=== PATIENT | female | born 1940 | race Caucasian/White ===

== ENCOUNTER 2016-07-09 09:23 | Outpatient (CLI) | payer MEDICARE, OTHER | END 2016-07-09 09:24 | disposition home or self-care (01) | DX: I51.7 Cardiomegaly (principal) ==

== ENCOUNTER 2016-08-09 10:36 | Outpatient (CLI) | payer MEDICARE, OTHER | END 2016-08-09 23:59 | DX: I42.2 Other hypertrophic cardiomyopathy (principal) ==

== ENCOUNTER 2017-01-23 16:14 | Emergency (ER) | payer MEDICARE, OTHER ==
[2017-01-23] MEDS ORDERED: HEPARIN 5,000 UNIT/ML VIAL IVP ONE (16:37)
[2017-01-23] MEDS ORDERED: METOPROLOL 5 MG/5 ML VIAL IVP STA (16:37)
[2017-01-23] MEDS ORDERED: HEPARIN 25,000 UNITS/500 ML 500 ML IV STA (16:37)
--- NOTE | 2017-01-23 16:40 | ED Physician Documentation ---
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 Review of Systems Constitutional: denies: Fever, Chills, Sweats Cardiac: reports: Chest pain / pressure Respiratory: denies: Dyspnea GI: denies: Abdominal Pain, Nausea, Vomiting Musculoskeletal: denies: Extremity pain, Extremity swelling Endocrine: denies: Easy bruising / bleeding Immunocompromised: denies: Immunocompromised PD PAST MEDICAL HISTORY - Past Medical History Past Medical History: Yes Cardiovascular: High cholesterol, Arrhythmia, Other Respiratory: None Endocrine/Autoimmune: None GI: None : None HEENT: None Psych: None Musculoskeletal: Osteoporosis Derm: None - Past Surgical History Past Surgical History: Yes General: Colonoscopy /[employer]:  - Present Medications Home Medications: Ambulatory Orders Medication Instructions Recorded Confirmed Aspirin 8 mg PO DAILY 08/06/14 01/23/17 Calcium Carb, Citrate/Vit D3 1 tab PO DAILY 08/06/14 01/23/17 [Calcium + D3 ER Tablet] Gluc/Ketan-MSM#3/Yung/Bosw/Bor 1 tab PO DAILY 08/06/14 01/23/17 [Glucosamine Chondroitin Sftgl] Multivit-Min/FA/Lycopene/Lut 1 tab PO DAILY 08/06/14 01/23/17 [Centrum Silver Tablet] Lyle-3 Fatty Acids [Lyle-3] 1 tab PO DAILY 08/06/14 01/23/17 Pravastatin Sodium 10 mg PO DAILY 08/06/14 01/23/17 Metoprolol Tartrate 12.5 mg PO BID 01/23/17 01/23/17 - Allergies Allergies/Adverse Reactions: Allergies Allergy/AdvReac Type Severity Reaction Status Date / Time Sulfa (Sulfonamide Allergy Unknown Verified 08/06/14 14:35 Antibiotics) - Social History Does the pt smoke?: No Smoking Status: Never smoker PD ED PE NORMAL - Vitals Vital signs reviewed: Yes - General General: Alert and oriented X 3 - Cardiac Cardiac: RRR - Respiratory Respiratory: No respiratory distress, Clear bilaterally - Abdomen Abdomen: Soft, Non tender - Derm Derm: Normal color - Extremities Extremities: No deformity, No edema, No calf tenderness / cord - Neuro Neuro: No motor deficit, No sensory deficit Results - Vitals Vitals: Vital Signs - 24 hr 01/23/17 01/23/17 16:19 16:52 Temperature 37.7 C H Heart Rate 88 78 Respiratory 18 18 Rate Blood Pressure 123/53 L 151/63 H O2 Saturation 97 98 Oxygen O2 Source Room air - EKG (time done) 1630 Rate: Rate (enter#) (91) Rhythm: NSR [place]: Normal Ischemia: ST elevation c/w ischemia (V1-V3 with reciprocol changes V5V6I) - Labs Labs: Laboratory Tests 01/23/17 01/23/17 01/23/17 16:35 16:35 16:35 WBC 13.0 H RBC 3.87 L Hgb 12.4 Hct 37.0 MCV 95.7 MCH 31.9 H MCHC 33.4 RDW 12.6 Plt Count 215 MPV 8.9 Neut # 10.6 H Lymph # 1.3 L [place] # 1.0 Eos # 0.1 Baso # 0.1 Absolute Nucleated RBC 0.00 Nucleated RBCs 0.0 Sodium 134 L Potassium 4.1 Chloride 102 Carbon Dioxide 24 Anion Gap 8.0 BUN 17 Creatinine 0.8 Estimated GFR (MDRD) 70 L Glucose 156 H Calcium 10.0 Total Bilirubin 0.9 AST 25 ALT 18 Alkaline Phosphatase 67 Troponin I < 0.04 Total Protein 7.6 Albumin 3.9 Globulin 3.7 Albumin/Globulin Ratio 1.1 Lipase 30 - Rads (name of study) CXR Radiology: EMP read indepedently (R masectomy, rotated, NACP, aortic knob clear and sharp), See rad report (possible lingular infiltrate) PD MEDICAL DECISION MAKING - ED course ED course: ST elev anterior leads with reciprocal depressions hx LVH, ST elev could be LVH but no old EKG to compare with with reciprocal changes and risk factors and onset with exertion feel ischemia likely called code STEMI and transported pt to [facility] per protocol gave asa, BB, heparin bolus and gtt d/w [facility] EMP Dr Jones who accepts and will notify cath team per [facility] no plavix labs pending at time of transfer pt remained stable and pain free and pt updated on dx and plan has pt belongings and will drive behind Departure - Departure Disposition: 02 Transfer Acute Care Hosp Clinical Impression: STEMI (ST elevation myocardial infarction) Qualifiers: Involved coronary artery: unspecified coronary artery Qualified Code(s): I21.3 - ST elevation (STEMI) myocardial infarction of unspecified site Condition: Fair Follow-Up: Valery Mcconnell PA-C [Primary Care Provider] - Discharge Date/Time: 01/23/17 16:56
[2017-01-23] MEDS ORDERED: ASPIRIN CHEW 81 MG TABLET PO STA (16:42)
[2017-01-23] MEDS ORDERED: HEPARIN 25,000 UNITS/500 ML 500 ML IV ONE ×2 (16:44)
[2017-01-23] MEDS ORDERED: METOPROLOL 5 MG/5 ML VIAL IVP ONE (16:44)
[2017-01-23 16:53] VITALS: BP 151/63
[2017-01-23 16:59] LABS: ALBUMIN/GLOBULIN RATIO 1.1 (1.0-2.2); BILIRUBIN,TOTAL 0.9 mg/dL (0.2-1.0); CREATININE 0.8 mg/dL (0.4-1.0); POTASSIUM 4.1 mmol/L (3.5-5.0); TOTAL PROTEIN 7.6 g/dL (6.7-8.2)
[2017-01-23 17:18] LABS: BASOPHILS # (AUTO) 0.1 10^3/uL (0.0-0.1); BASOPHILS % (AUTO) 0.8 %; EOSINOPHILS # (AUTO) 0.1 10^3/uL (0.0-0.7); EOSINOPHILS % (AUTO) 0.5 %; HGB - HEMOGLOBIN 12.4 g/dL (12.0-16.0); LYMPHOCYTES # (AUTO) 1.3 10^3/uL (1.5-3.5); LYMPHOCYTES % (AUTO) 10.3 %; MEAN CORPUSCULAR HEMOGLOBIN 31.9 pg (27.0-31.0); MEAN CORPUSCULAR HGB CONC 33.4 g/dL (32.0-36.0); MEAN CORPUSCULAR VOLUME 95.7 fL (81.0-99.0); MEAN PLATELET VOLUME 8.9 fL (7.9-10.8); MONOCYTES % (AUTO) 7.5 %; NEUTROPHILS # (AUTO) 10.6 10^3/uL (1.5-6.6); NEUTROPHILS % (AUTO) 80.9 %; RED BLOOD COUNT 3.87 10^6/uL (4.20-5.40); RED CELL DISTRIBUTION WIDTH 12.6 % (12.0-15.0)
--- NOTE | 2017-01-23 17:26 | XRAY Preliminary Report ---
Exam: XR Chest 1 View IMPRESSION: Lingular opacity, correlate clinically for pneumonia. [facility] SITE ID: [id number]
--- NOTE | 2017-01-23 17:28 | XRAY Report ---
EXAM: CHEST RADIOGRAPHY EXAM DATE: 01/23/2017 05:02 PM. CLINICAL HISTORY: Chest pressure. COMPARISON: None. TECHNIQUE: 1 view. FINDINGS: Lungs/Pleura: Patchy opacity in the lingula. No large pleural effusions. No pneumothorax. Mediastinum: Within exam limitations, cardiomediastinal contour is normal. Other: Right mastectomy. Surgical clips in the right axilla. IMPRESSION: Lingular opacity, correlate clinically for pneumonia. [facility] Referring Provider Line: [phone] SITE ID: [id number]
== END 2017-01-23 16:56 | disposition short-term general hospital (02) ==
LOC: ED 16:14
DX: I21.3 ST elevation (STEMI) myocardial infarction of unspecified site (principal); E78.00 Pure hypercholesterolemia, unspecified; Z79.82 Long term (current) use of aspirin
CPT/HCPCS: 36415; 71010; 80053; 83690; 84484; 85025; 93005; 96374; 96375; 96376; 99284; A9270

== ENCOUNTER 2017-01-23 16:57 | Outpatient (CLI) | payer MEDICARE, OTHER | END 2017-01-23 16:58 | disposition short-term general hospital (02) | LOC: EMS 16:57 | PROVIDERS: ATTEND Surgery | DX: I21.3 ST elevation (STEMI) myocardial infarction of unspecified site (principal) | CPT/HCPCS: A0425; A0427 ==

== ENCOUNTER 2017-02-17 16:53 | Outpatient (CLI) | payer MEDICARE, OTHER | END 2017-02-17 16:54 | disposition home or self-care (01) | LOC: LAB.R 16:53 | PROVIDERS: ATTEND Physician Assistant Medical | DX: R19.7 Diarrhea, unspecified (principal) | CPT/HCPCS: 87493 ==

== ENCOUNTER 2017-04-29 11:35 | Outpatient (CLI) | payer MEDICARE, OTHER ==
--- NOTE | 2017-04-29 13:27 | XRAY Report ---
TWO VIEW CHEST: 04/29/2017 CLINICAL INDICATION: Bronchitis. COMPARISON: 02/28/2017. FINDINGS: Frontal and lateral views of the chest demonstrate a normal cardiac silhouette. The lungs are hyperinflated, but clear. No focal consolidation, effusion, or pneumothorax is present. Postopera tive changes in the right breast are stable. IMPRESSION: HYPERINFLATION, SUGGESTIVE OF COPD. NO EVIDENCE OF ACUTE CARDIOPULMONARY DISEASE. JOB #: [id number] EXT JOB #:[id number]
== END 2017-04-29 11:36 | disposition home or self-care (01) ==
LOC: DI 11:35
PROVIDERS: ATTEND Family Medicine
DX: J20.9 Acute bronchitis, unspecified (principal)
CPT/HCPCS: 71020

== ENCOUNTER 2017-08-09 08:00 | Outpatient (CLI) | payer MEDICARE, OTHER | END 2017-08-09 08:01 | disposition home or self-care (01) | LOC: LAB.WCP 08:00 | PROVIDERS: ATTEND Family Medicine | DX: R05 Cough (principal); R09.81 Nasal congestion; B97.89 Other viral agents as the cause of diseases classified elsewhere | CPT/HCPCS: 87275; 87276 ==

== ENCOUNTER 2018-01-18 08:53 | Outpatient (CLI) | payer MEDICARE, OTHER ==
--- NOTE | 2018-01-18 15:46 | DEXA Report ---
Procedure Date: 01/18/2018 Accession Number: [id number] / [id number] Procedure: DEX - Dexa Spine and/or Hip CPT Code: FULL RESULT: EXAM: Dexa Spine and/or Hip DATE: 01/18/2018 9:31 AM CLINICAL HISTORY: OSTEOPOROSIS NOS TECHNIQUE: Dual energy x-ray absorptiometry (DXA) was performed on a [employer] System. Regions measured are the AP Spine, femoral neck, and if needed forearm. COMPARISON: 01/13/2016. In accordance with the International Society for Clinical Densitometry (ISCD) guidelines, data from previous exams may be reanalyzed using current recommendations and techniques. This is done to allow a more accurate basis for comparison with the current study. FINDINGS: The data for the lumbar spine is as follows: BMD (g/cm/cm) T-SCORE Z-SCORE REGION L1 0.959 -1.4 0.4 L2 1.045 -1.3 0.6 L3 1.080 -1.0 0.9 L4 1.153 -0.4 1.5 TOTAL 1.065 -1.0 0.9 NOTE: All evaluable vertebrae are used for classification The data for the hip is as follows: BMD (g/cm/cm) T-SCORE Z-SCORE REGION Neck 0.631 -2.9 -0.9 TOTAL 0.696 -2.5 -0.6 NOTE: The femoral neck or total proximal femur, whichever is lowest, is used for classification. DXA RESULTS SUMMARY: Spine SCAN DATE AGE BMD CHANGE VS CHANGE VS PREVIOUS PREVIOUS % 01[age]18/2018 [age] 1.065 -0.044* -4.0* 01/13/2016 [age] 1.109 * Denotes significant change at the 95% confidence level. Denotes dissimilar scan types or analysis methods. DXA RESULTS SUMMARY: Hip SCAN DATE [age]GE BMD CHANGE VS CHANGE VS PREVIOUS PREVIOUS % 01[age]18/2018 [age] 0.696 -0.017 -2.4 01/13/2016 [age] 0.713 * Denotes significant change at the 95% confidence level. Denotes dissimilar scan types or analysis methods. IMPRESSION: THE WHO CLASSIFICATION BASED ON THE INTERNATIONAL REFERENCE STANDARD IS OSTEOPOROSIS. THE FRACTURE RISK IS HIGH. RECOMMENDATION: Patients with diagnosis of osteoporosis or osteopenia should have regular bone mineral density assessment. For those eligible for Medicare, routine testing is allowed once every 2 years. Testing frequency can be increased for patients who have rapidly progressing disease or for those who are receiving medical therapy to restore bone mass. COMMENT: World Health Organization (WHO) definitions for osteoporosis and osteopenia: NORMAL BMD: T-score at -1.0 or higher, fracture risk is low OSTEOPENIA BMD: T-score between -1.0 and -2.5, fracture risk is increased. OSTEOPOROSIS BMD: T-score at -2.5 or lower, fracture risk is high. National Osteoporosis Foundation recommends: 1. Obtain adequate dietary calcium (at least 1200 mg per day) and vitamin D (400-800 international units per day). 2. Participate, as appropriate, in regular weightbearing and muscle-strengthening exercise. 3. Avoid tobacco use and reduce alcohol and caffeine intake. 4. For more detailed information see the website at www.NOF.org.
== END 2018-01-18 08:54 | disposition home or self-care (01) ==
LOC: DI 08:53
PROVIDERS: ATTEND Family Medicine
DX: M81.0 Age-related osteoporosis without current pathological fracture (principal)
CPT/HCPCS: 77080

== ENCOUNTER 2018-03-09 06:30 | Outpatient (CLI) | payer MEDICARE, OTHER | END 2018-03-09 06:31 | disposition home or self-care (01) | LOC: LAB.WCP 06:30 | PROVIDERS: ATTEND Family Medicine | DX: R19.7 Diarrhea, unspecified (principal) | CPT/HCPCS: 81599; 83630; 87045; 87046; 87177; 87209; 87329; 87493 ==

== ENCOUNTER → 2018-04-24 | Outpatient (CLI) | payer MEDICARE, OTHER | LOC: LAB.R 15:04 | PROVIDERS: ATTEND Physician Assistant | DX: A04.72 Enterocolitis due to Clostridium difficile, not specified as recurrent (principal); R19.7 Diarrhea, unspecified | CPT/HCPCS: 82274; 87493 ==

== ENCOUNTER 2018-11-14 07:40 | Outpatient (CLI) | payer MEDICARE, OTHER | END 2018-11-14 07:41 | disposition home or self-care (01) | LOC: LAB.WCP 07:40 | PROVIDERS: ATTEND Family Medicine | DX: A04.72 Enterocolitis due to Clostridium difficile, not specified as recurrent (principal) | CPT/HCPCS: 87493 ==

== ENCOUNTER 2020-05-08 08:00 | Outpatient (CLI) | payer MEDICARE, OTHER ==
[2020-05-08 11:59] LABS: BASOPHILS # (AUTO) 0.1 10^3/uL (0.0-0.1); BASOPHILS % (AUTO) 1.1 %; EOSINOPHILS # (AUTO) 0.4 10^3/uL (0.0-0.7); EOSINOPHILS % (AUTO) 5.8 %; HGB - HEMOGLOBIN 12.7 g/dL (12.0-16.0); MEAN CORPUSCULAR HEMOGLOBIN 31.2 pg (27.0-31.0); MEAN CORPUSCULAR HGB CONC 31.8 g/dL (32.0-36.0); MEAN PLATELET VOLUME 10.8 fL (7.9-10.8); MONOCYTES # (AUTO) 0.5 10^3/uL (0.0-1.0); MONOCYTES % (AUTO) 8.3 %; NEUTROPHILS # (AUTO) 4.5 10^3/uL (1.5-6.6); NEUTROPHILS % (AUTO) 68.5 %; PLT - PLATELET COUNT 240 10^3/uL (130-450); RED BLOOD COUNT 4.07 10^6/uL (4.20-5.40); WHITE BLOOD COUNT 6.5 x10^3/uL (4.8-10.8)
[2020-05-08 12:04] LABS: ALBUMIN 4.2 g/dL (3.2-5.5); ALBUMIN/GLOBULIN RATIO 1.3 (1.0-2.2); ALKALINE PHOSPHATASE 70 IU/L (42-121); ALT ALANINE AMINOTRANSFERASE 15 IU/L (10-60); AST ASPARTATE AMINOTRANSFERASE 22 IU/L (10-42); BILIRUBIN,TOTAL 0.9 mg/dL (0.2-1.0); BUN - BLOOD UREA NITROGEN 15 mg/dL (6-20); CALCIUM 10.3 mg/dL (8.5-10.3); CARBON DIOXIDE - CO2 27 mmol/L (21-32); CHLORIDE 104 mmol/L (101-111); CHOL/HDL RATIO 2.4 (<4.4); CHOLESTEROL 221 mg/dL; CREATININE 0.8 mg/dL (0.4-1.0); GLUCOSE 104 mg/dL (70-100); HDL CHOLESTEROL 91 mg/dL; LDL CHOLESTEROL,CALCULATED 119 mg/dL; LDL/HDL RATIO 1.3 (<4.4); SODIUM 138 mmol/L (135-145); TOTAL PROTEIN 7.4 g/dL (6.7-8.2); VLDL CHOLESTEROL 11 mg/dL
== END 2020-05-08 23:59 ==
LOC: LAB.WCP 08:00
PROVIDERS: ATTEND Family Medicine
DX: E78.5 Hyperlipidemia, unspecified (principal); M47.892 Other spondylosis, cervical region; M81.0 Age-related osteoporosis without current pathological fracture; Z85.3 Personal history of malignant neoplasm of breast
CPT/HCPCS: 36415; 80053; 80061; 82306; 83721; 84443; 85025

== ENCOUNTER 2020-09-10 08:13 | Outpatient (CLI) | payer MEDICARE, OTHER ==
--- NOTE | 2020-09-10 09:42 | DEXA Report ---
PROCEDURE: Dexa Spine and/or Hip INDICATIONS: OSTEOPOROSIS TECHNIQUE: Dual energy x-ray absorptiometry (DXA) was performed on a [employer] System. Regions measur ed are the AP Spine, femoral neck, and if needed forearm. COMPARISON: Similar DEXA bone densitometry study 01/18/2018.. FINDINGS: Lumbar Spine: Bone Mineral Density 1.056 g/cm/cm,T score -1.0, normal, and this value represents a 0.8% reductio n, nonstatistically significant, when compared to the prior study from January 2018. Left Hip: Bone Mineral Density 0.661 g/cm/cm,T score -2.8, osteoporotic, and this represents a statistically s ignificant 5% reduction when compared to the prior study from 01/18/2018. Left Femoral Neck: Bone Mineral Density 0.617 g/cm/cm, T score -3.0, osteoporotic. (T score greater or equal to -1.0: NORMAL) (T score from -1.1 to -2.4: OSTEOPENIA) (T score less than or equal to -2.5 to: OSTEOPOROSIS) Impression: The lumbosacral spine bone mineral density is normal, just above the threshold for osteop enia. The left hip/femoral neck each show osteoporotic bone mineral densit as discussed above.. Patients with diagnosis of osteoporosis or osteopenia should have regular bone mineral density assess ment. For those eligible for Medicare, routine testing is allowed once every 2 years. Testing frequ ency can be increased for patients who have rapidly progressing disease or for those who are receivin g medical therapy to restore bone mass. Reviewed by: Alvarez Seymour MD on 09/10/2020 9:41 AM PDT Approved by: Alvarez Seymour MD on 09/10/2020 9:41 AM PDT Station ID: [id number]
== END 2020-09-10 08:14 | disposition home or self-care (01) ==
LOC: DI 08:13
PROVIDERS: ATTEND Family Medicine
DX: M81.0 Age-related osteoporosis without current pathological fracture (principal)

== ENCOUNTER 2020-11-07 15:42 | Outpatient (CLI) | payer MEDICARE, OTHER | END 2020-11-07 15:43 | disposition short-term general hospital (02) | LOC: EMS 15:42 | DX: R00.0 Tachycardia, unspecified (principal); R07.89 Other chest pain; R53.1 Weakness | CPT/HCPCS: A0425; A0427 ==

== ENCOUNTER 2020-11-13 10:46 | Outpatient (CLI) | payer MEDICARE, OTHER | END 2020-11-13 10:47 | disposition left against medical advice (07) | LOC: EMS 10:46 | DX: I10 Essential (primary) hypertension (principal) ==

== ENCOUNTER 2020-11-18 08:22 | Outpatient (CLI) | payer MEDICARE, OTHER | END 2020-11-18 08:23 | disposition EMS.NT | LOC: EMS 08:22 | DX: I10 Essential (primary) hypertension (principal) ==

== ENCOUNTER 2020-12-02 10:30 | Outpatient (CLI) | payer MEDICARE, OTHER | END 2020-12-02 10:31 | disposition short-term general hospital (02) | LOC: EMS 10:30 | DX: R06.09 Other forms of dyspnea (principal); R00.2 Palpitations; F41.9 Anxiety disorder, unspecified | CPT/HCPCS: A0425; A0429 ==

== ENCOUNTER 2020-12-18 18:28 | Outpatient (CLI) | payer MEDICARE, OTHER | END 2020-12-18 18:29 | disposition short-term general hospital (02) | LOC: EMS 18:28 | DX: R07.9 Chest pain, unspecified (principal) | CPT/HCPCS: A0425; A0429 ==

== ENCOUNTER 2021-07-28 08:00 | Outpatient (CLI) | payer MEDICARE, OTHER ==
[2021-07-28 18:05] LABS: ALBUMIN 4.2 g/dL (3.2-5.5); ALBUMIN/GLOBULIN RATIO 1.3 (1.0-2.2); BILIRUBIN,TOTAL 0.7 mg/dL (0.2-1.0); CALCIUM 10.4 mg/dL (8.5-10.3); CREATININE 0.8 mg/dL (0.4-1.0); POTASSIUM 4.5 mmol/L (3.5-5.0); TOTAL PROTEIN 7.4 g/dL (6.7-8.2)
[2021-07-28 18:06] LABS: BASOPHILS # (AUTO) 0.1 10^3/uL (0.0-0.1); BASOPHILS % (AUTO) 0.7 %; EOSINOPHILS # (AUTO) 0.4 10^3/uL (0.0-0.7); EOSINOPHILS % (AUTO) 5.1 %; HCT - HEMATOCRIT 37.9 % (37.0-47.0); HGB - HEMOGLOBIN 12.6 g/dL (12.0-16.0); LYMPHOCYTES # (AUTO) 1.2 10^3/uL (1.5-3.5); LYMPHOCYTES % (AUTO) 15.6 %; MEAN CORPUSCULAR HEMOGLOBIN 31.5 pg (27.0-31.0); MEAN CORPUSCULAR HGB CONC 33.2 g/dL (32.0-36.0); MEAN CORPUSCULAR VOLUME 94.8 fL (81.0-99.0); MEAN PLATELET VOLUME 11.2 fL (7.9-10.8); MONOCYTES # (AUTO) 0.6 10^3/uL (0.0-1.0); MONOCYTES % (AUTO) 7.7 %; NEUTROPHILS # (AUTO) 5.3 10^3/uL (1.5-6.6); NEUTROPHILS % (AUTO) 70.6 %; PLT - PLATELET COUNT 272 10^3/uL (130-450); WHITE BLOOD COUNT 7.5 x10^3/uL (4.8-10.8)
[2021-07-30 23:35] LABS: ANA PATTERN Nuclear, Speckled; ANA SCREEN POSITIVE (NEGATIVE)
== END 2021-07-28 23:59 | disposition home or self-care (01) ==
LOC: LAB.N 08:00
PROVIDERS: ATTEND Nurse Practitioner
DX: I73.00 Raynaud's syndrome without gangrene (principal)
CPT/HCPCS: 36415; 80053; 85025; 85651; 86038

== ENCOUNTER 2021-07-28 13:23 | Outpatient (CLI) | payer MEDICARE, OTHER ==
--- NOTE | 2021-07-29 09:58 | XRAY Report ---
PROCEDURE: Foot 2 View BILAT INDICATIONS: RAYNAUD'S DISEASE TECHNIQUE: 2 views of each foot were acquired. COMPARISON: None. FINDINGS: Bones: No fractures or dislocations. No suspicious bony lesions. Moderate degenerative joint disea se at the first metatarsophalangeal joints, multiple tarsometatarsal joints and interphalangeal joint s. Soft tissues: No tibiotalar joint effusion. Achilles tendon appears normal. IMPRESSION: Moderate degenerative joint disease. Reviewed by: Sandro Logan MD on 07/29/2021 9:56 AM PST Approved by: Sandro Logan MD on 07/29/2021 9:56 AM PST Station ID: [id number]
== END 2021-07-28 23:59 | disposition home or self-care (01) ==
LOC: DI.N 13:23
PROVIDERS: ATTEND Nurse Practitioner
DX: I73.00 Raynaud's syndrome without gangrene (principal); M19.072 Primary osteoarthritis, left ankle and foot; M19.071 Primary osteoarthritis, right ankle and foot
CPT/HCPCS: 36415; 80053; 85025; 85651; 86038; 86039

== ENCOUNTER 2022-04-21 16:57 | Outpatient (CLI) | payer MEDICARE, OTHER ==
--- NOTE | 2022-04-21 17:50 | XRAY Report ---
PROCEDURE: Elbow 2 View LT INDICATIONS: L ELBOW PX TECHNIQUE: 3 views of the elbow were acquired. COMPARISON: None FINDINGS: Bones: Expected appearance of surgical hardware, proximal ulna, with no evidence of hardware failure or loosening. No fractures or dislocations. No suspicious bony lesions. Soft tissues: No elbow joint effusion. No suspicious soft tissue calcifications. IMPRESSION: Expected appearance of surgical hardware. No evidence of acute bony abnormality of the left elbow. Reviewed by: Eliot Burns MD on 04/21/2022 5:48 PM PDT Approved by: Eliot Burns MD on 04/21/2022 5:48 PM PDT Station ID: [id number]
--- NOTE | 2022-04-22 10:56 | XRAY Report ---
PROCEDURE: Shoulder 2 View LT INDICATIONS: L SHOULDER PX TECHNIQUE: 2 views of the shoulder were acquired. COMPARISON: None. FINDINGS: Bones: Fracture lucencies at the humeral head/neck appear present with relatively good anatomic align ment. No priors are available for comparison. No suspicious bony lesions. Visualized ribs appear int act. Shoulder arthroplasty is present. Hardware is intact without evidence of hardware fracture or p eriprosthetic lucency to suggest loosening. Soft tissues: No suspicious soft tissue calcifications. IMPRESSION: Left shoulder arthroplasty. Fracture lucencies are noted within the humeral head/neck without priors available for comparison as to chronicity. Reviewed by: Kim Pizarro MD on 04/22/2022 10:54 AM PDT Approved by: Kim Pizarro MD on 04/22/2022 10:54 AM PDT Station ID: [id number]
== END 2022-04-21 16:58 | disposition home or self-care (01) ==
LOC: DI.N 16:57
PROVIDERS: ATTEND Student in an Organized Health Care Education/Training Program
DX: S42.302D Unspecified fracture of shaft of humerus, left arm, subsequent encounter for fracture with routine healing (principal); M25.512 Pain in left shoulder; M25.522 Pain in left elbow

== ENCOUNTER 2022-06-16 10:23 | Outpatient (CLI) | payer MEDICARE, OTHER ==
--- NOTE | 2022-06-17 09:22 | XRAY Report ---
PROCEDURE: Elbow 3 View LT INDICATIONS: FX OF OLECRANON PROCESS OF L ELBOW TECHNIQUE: 3 views of the elbow were acquired. COMPARISON: Left elbow radiographs 04/21/2022 FINDINGS: Bones: The bones appear demineralized. Patient has undergone prior plate and screw fixation of the pr oximal ulna/olecranon process. Hardware appears intact and similar to before. Fracture alignment not significantly changed. Soft tissues: No definite elbow joint effusion. No suspicious soft tissue calcifications. IMPRESSION: Similar appearance of the left elbow post proximal ulna fixation. Reviewed by: Yaron Tejada MD on 06/17/2022 9:21 AM PST Approved by: Yaron Tejada MD on 06/17/2022 9:21 AM PST Station ID: [id number]
--- NOTE | 2022-06-17 09:26 | XRAY Report ---
PROCEDURE: Shoulder 3 View LT INDICATIONS: POST REVERSE L SHOULDER REPLACEMENT TECHNIQUE: 3 views of the shoulder were acquired. COMPARISON: Left shoulder radiographs 04/21/2022 FINDINGS: Bones: Postsurgical changes from left shoulder reverse arthroplasty. Hardware appears intact. No shou lder dislocation. No suspicious bony lesions. Visualized ribs appear intact. Previous proximal sky bill/periprosthetic fractures appear less conspicuous than on the prior exam. Soft tissues: No suspicious soft tissue calcifications. IMPRESSION: Postsurgical changes from left shoulder reverse arthroplasty. Previous proximal humerus fractures appear less conspicuous than before. No definite new/interval abnormality. Reviewed by: Yaron Tejada MD on 06/17/2022 9:24 AM PST Approved by: Yaron Tejada MD on 06/17/2022 9:24 AM PST Station ID: [id number]
== END 2022-06-16 10:24 | disposition home or self-care (01) ==
LOC: DI.N 10:23
PROVIDERS: ATTEND Registered Nurse
DX: S52.022D Displaced fracture of olecranon process without intraarticular extension of left ulna, subsequent encounter for closed fracture with routine healing (principal); Z47.1 Aftercare following joint replacement surgery; Z96.612 Presence of left artificial shoulder joint

== ENCOUNTER 2023-01-03 09:49 | Outpatient (CLI) | payer MEDICARE, OTHER ==
--- NOTE | 2023-01-03 16:48 | DEXA Report ---
PROCEDURE: Dexa Spine and/or Hip INDICATIONS: HYERPARATHYROIDISM TECHNIQUE: Dual energy x-ray absorptiometry (DXA) was performed on a [employer] System. Regions measur ed are the AP Spine, femoral neck, and if needed forearm. Forearm was included secondary to hyperpara thyroidism. COMPARISON: DEXA 09/10/2020 FINDINGS: Lumbar Spine: Bone Mineral Density 1.037 g/cm/cm,T score -1.2, compared to -1.0. Left Femoral Neck: Bone Mineral Density 0.561 g/cm/cm, T score -3.4, compared to -3.0. Left Hip: Bone Mineral Density 0.619 g/cm/cm,T score -3.1, compared to -2.8. Left Forearm: Bone Mineral Density 0.495 g/cm/cm, T score -4.3. This was not previously measured. (T score greater or equal to -1.0: NORMAL) (T score from -1.1 to -2.4: OSTEOPENIA) (T score less than or equal to -2.5 to: OSTEOPOROSIS) Impression: By WHO criteria, this patient has osteoporosis of the femoral neck, hip as well as forearm. Patients with diagnosis of osteoporosis or osteopenia should have regular bone mineral density assess ment. For those eligible for Medicare, routine testing is allowed once every 2 years. Testing frequ ency can be increased for patients who have rapidly progressing disease or for those who are receivin g medical therapy to restore bone mass. Reviewed by: Kim Pizarro MD on 01/03/2023 4:46 PM PDT Approved by: Kim Pizarro MD on 01/03/2023 4:46 PM PDT Station ID: [id number]
== END 2023-01-03 09:50 | disposition home or self-care (01) ==
LOC: DI 09:49
PROVIDERS: ATTEND Internal Medicine Endocrinology, Diabetes & Metabolism
DX: M81.0 Age-related osteoporosis without current pathological fracture (principal); E21.3 Hyperparathyroidism, unspecified

== ENCOUNTER 2024-02-15 08:00 | Outpatient (CLI) | payer MEDICARE, OTHER ==
[2024-02-15 12:36] LABS: CALCIUM 9.5 mg/dL (8.5-10.3); CREATININE 0.8 mg/dL (0.6-1.3)
== END 2024-02-15 23:59 | disposition home or self-care (01) ==
LOC: LAB.N 08:00
PROVIDERS: ATTEND Physician Assistant
DX: U07.1 COVID-19 (principal)
CPT/HCPCS: 36415; 80048